=== PATIENT | male | born 1975 | race Caucasian/White ===

== ENCOUNTER 2022-02-28 14:14 | Inpatient (IN) ==
[2022-02-28] MEDS ORDERED: Piperacillin/Tazobactam 3.375 GM in 0.9 % Sodium Chloride Mini Bag 100 ML IVPB ONE (14:39)
[2022-02-28] MEDS ORDERED: Doxycycline 100 MG in 0.9 % Sodium Chloride Mini Bag 100 ML IVPB ONE (14:39)
[2022-02-28] MEDS ORDERED: 0.9 % Sodium Chloride 500 ML IVC ONE ×2 (14:41→15:58)
[2022-02-28 15:23] LABS: Basophils % 0.2 %; Immature Granulocytes % 0.5 % (0-4); Lymphocytes % 2.8 %; Red Cell Distribution Width 13.9 % (11.5-14.5)
[2022-02-28 15:24] LABS: Basophils # 0.1 K/mcL (0.0-0.2); Hematocrit 46.7 % (37.5-50.1); Hemoglobin 15.4 g/dL (12.9-16.9); Lymphocytes # 0.8 K/mcL (0.6-4.6); Mean Corpuscular Hemoglobin 28.2 pg (28.0-33.3); Mean Corpuscular Volume 85.4 fL (83.0-100.0); Mean Platelet Volume 10.4 fL (9.4-12.4); Monocytes # 1.2 K/mcL (0.0-1.3); Monocytes % 4.2 %; Platelet Count 256 K/mcL (140-400); Red Blood Count 5.47 M/mcL (4.19-5.50); Segmented Neutrophils % 92.3 %; White Blood Count 27.9 K/mcL (4.3-11.1)
[2022-02-28 15:25] LABS: VBG HCO3 22 mEq/L (21-27); VBG PCO2 37 mmHg (41-51); VBG PH 7.38 pH Units (7.32-7.42); VBG PO2 45 mmHg (25-50)
[2022-02-28 15:30] LABS: INR 1.2; Prothrombin Time 13.5 Seconds (9.4-12.1)
[2022-02-28 15:31] LABS: Neutrophils # 25.8 K/mcL (1.6-8.9)
[2022-02-28 15:54] LABS: BUN/Creatinine Ratio 19 (6-26); Blood Urea Nitrogen 10 mg/dL (6-20); Calcium 9.8 mg/dL (8.6-10.3); Carbon Dioxide 19 mEq/L (23-29); Chloride 106 mEq/L (98-107); Glucose 107 mg/dL (70-105); Osmolality,Calculated 282 (280-300); Sodium 136 mEq/L (136-145); Troponin I < 0.03 ng/mL (< 0.04)
[2022-02-28 15:58] LABS: Platelet Estimate Normal (Normal)
[2022-02-28] MEDS ORDERED: Iopamidol - 370 500 ML MLS IVP ONE ×2 (16:08→16:10)
[2022-02-28 16:09] LABS: Amorphous Sediment,Urine Few per hpf (None-Few); Bacteria,Urine Few per hpf (None-Few); Bilirubin,Urine Negative (Negative); Blood,Urine Large (Negative); Clarity,Urine Ex.Turbid (Clear); Color,Urine Yellow (Yellow); Glucose,Urine (UA) Normal (Normal); Ketones,Urine Negative (Negative); Leukocyte Esterase,Urine Large (Negative); Mucus,Urine Few per lpf (None-Few); Nitrite,Urine Positive (Negative); Protein,Urine 50 mg/dL (Neg-Trace); RBC,Urine TNTC per hpf (0-3); Specific Gravity,Urine 1.018 (1.010-1.025); Urobilinogen,Urine Normal (Normal); WBC,Urine TNTC per hpf (0-3)
[2022-02-28 16:39] LABS: Adenovirus Not Detected (Not Detect); Coronavirus 229E Not Detected (Not Detect); Coronavirus HKU1 Not Detected (Not Detect); Coronavirus NL63 Not Detected (Not Detect); Coronavirus OC43 Not Detected (Not Detect); Human Metapneumovirus Not Detected (Not Detect); Human Rhinovirus/Enterovirus Not Detected (Not Detect); Influenza A Subtype 2009 H1 Not Detected (Not Detect); Influenza B Not Detected (Not Detect); SARS-CoV-2 Not Detected (Not Detect)
[2022-02-28 16:40] LABS: Bordetella Pertussis Not Detected (Not Detect); Chlamydophila pneumoniae Not Detected (Not Detect); Mycoplasma pneumoniae Not Detected (Not Detect); Parainfluenza Virus 1 Not Detected (Not Detect); Parainfluenza Virus 2 Not Detected (Not Detect); Parainfluenza Virus 3 Not Detected (Not Detect); Parainfluenza Virus 4 Not Detected (Not Detect); Respiratory Syncytial Virus Not Detected (Not Detect)
[2022-02-28 17:07] LABS: Alanine Aminotransferase 18 Units/L (7-52); Albumin 4.7 g/dL (3.5-5.7); Albumin/Globulin Ratio 1.6 (1.1-2.2); Alkaline Phosphatase 62 Units/L (34-104); Aspartate Amino Transferase 17 Units/L (13-39); Bilirubin,Direct 0.1 mg/dL (0.0-0.2); Bilirubin,Indirect 0.6 mg/dL (0.0-1.0); Bilirubin,Total 0.7 mg/dL (0.3-1.0); Total Protein 7.7 g/dL (6.4-8.9)
[2022-02-28] MEDS ORDERED: Ipratropium/Albuterol Neb 3 ML ONE (17:57)
[2022-02-28] MEDS ORDERED: Ipratropium/Albuterol Neb 3 ML IH ONE (18:04)
[2022-02-28] MEDS ORDERED: Ondansetron 4 MG/2 ML VIAL IVP PRN (19:32)
[2022-02-28] MEDS ORDERED: Naloxone 0.4 MG/ML INJ IVP PRN (19:32)
[2022-02-28] MEDS ORDERED: Acetaminophen 325 MG TABLET PO PRN (19:32)
[2022-02-28] MEDS ORDERED: Ketorolac 30 MG/ML VIAL IVP PRN (19:32)
[2022-02-28 19:51] LABS: Amphetamine Screen,Urine Negative ng/mL (Cutoff=1000); Barbiturate Screen,Urine Negative ng/mL (Cutoff=200); Benzodiazepines Screen,Urine Negative ng/mL (Cutoff=200); Cannabinoid Screen,Urine Positive ng/mL (Cutoff = 50); Cocaine Screen,Urine Negative ng/mL (Cutoff= 300); Opiate Screen,Urine Negative ng/mL (Cutoff=300); Phencyclidine Screen,Urine Negative ng/mL (Cutoff=25)
[2022-02-28] MEDS ORDERED: Levalbuterol Neb 0.63 MG/3 ML IH PRN (20:42)
[2022-02-28] MEDS: 0.9 % Sodium Chloride 1,000 ML IVC SCH (23:28)
[2022-03-01] MEDS ORDERED: tiZANidine 4 MG TABLET PO ONE ×2 (00:30→18:05)
[2022-03-01] MEDS ORDERED: Norepinephrine 4 MG/254 ML IV.SOLN IVC ONE (02:23)
[2022-03-01] MEDS ORDERED: 0.9 % Sodium Chloride 1,000 ML ONE (02:59)
[2022-03-01] MEDS ORDERED: 0.9 % Sodium Chloride 1,000 ML IV ONE (03:00)
[2022-03-01] MEDS ORDERED: Norepinephrine 4 MG/254 ML IV.SOLN IVC SCH (04:45)
[2022-03-01] MEDS: 0.9 % Sodium Chloride 1,000 ML IVC SCH ×5 (06:08→21:05)
[2022-03-01] MEDS ORDERED: Azithromycin 500 MG in 0.9 % Sodium Chloride 250 ML IVPB SCH (09:00)
[2022-03-01 09:04] LABS: Hematocrit 37.1 % (37.5-50.1); Mean Corpuscular HGB Conc 33.7 g/dL (31.6-35.5); Mean Corpuscular Hemoglobin 28.7 pg (28.0-33.3); Mean Corpuscular Volume 85.3 fL (83.0-100.0); Mean Platelet Volume 10.5 fL (9.4-12.4); Platelet Count 225 K/mcL (140-400); Red Blood Count 4.35 M/mcL (4.19-5.50); Red Cell Distribution Width 14.1 % (11.5-14.5); White Blood Count 21.7 K/mcL (4.3-11.1)
[2022-03-01 09:24] LABS: BUN/Creatinine Ratio 21 (6-26); Blood Urea Nitrogen 8 mg/dL (6-20); Calcium 8.2 mg/dL (8.6-10.3); Carbon Dioxide 19 mEq/L (23-29); Chloride 110 mEq/L (98-107); Glucose 110 mg/dL (70-105); Osmolality,Calculated 281 (280-300); Potassium 3.3 mEq/L (3.5-5.1); Sodium 136 mEq/L (136-145)
[2022-03-01] MEDS ORDERED: *HR* Heparin 5,000 UNIT/ML VIAL SQ SCH (09:30)
[2022-03-01 09:34] LABS: Hemoglobin 12.5 g/dL (12.9-16.9)
[2022-03-01] MEDS: Doxycycline 100 MG in 0.9 % Sodium Chloride Mini Bag 100 ML IVPB SCH ×2 (18:03→18:38)
[2022-03-01] MEDS: *HR* Heparin 5,000 UNIT/ML VIAL SQ SCH (18:38)
[2022-03-02] MEDS: 0.9 % Sodium Chloride 1,000 ML IVC SCH ×3 (04:23→20:49)
[2022-03-02] MEDS: Doxycycline 100 MG in 0.9 % Sodium Chloride Mini Bag 100 ML IVPB SCH ×2 (06:08→17:44)
[2022-03-02] MEDS: *HR* Heparin 5,000 UNIT/ML VIAL SQ SCH ×2 (06:10→18:59)
[2022-03-02] MEDS: cefTRIAXone 1,000 MG in 0.9 % Sodium Chloride 20 ML IVP SCH ×2 (08:31→10:58)
[2022-03-02] MEDS ORDERED: Potassium Chloride Elixir 20 MEQ/15 ML UDC PO ONE (09:15)
[2022-03-02] MEDS ORDERED: polyethylene glycoL 3350 17 GM POWD.PACK GTUBE PRN (10:56)
[2022-03-02] MEDS ORDERED: Bisacodyl 10 MG RECTAL SUPPOSITORY RC PRN (10:56)
[2022-03-02] MEDS ORDERED: Ipratropium/Albuterol Neb 3 ML IH PRN (10:56)
[2022-03-02] MEDS ORDERED: GuaiFENesin Liq 200 MG/10 ML UDC GTUBE PRN (10:56)
[2022-03-02] MEDS ORDERED: Fluticasone Propionate Nasal 50 MCG/SPRAY BOTTLE NS PRN (10:56)
[2022-03-02] MEDS ORDERED: Artificial Tears SOLN 15 ML BOTTLE BOTH EYES PRN (11:14)
[2022-03-02] MEDS ORDERED: Loratadine 10 MG TABLET GTUBE PRN (11:16)
[2022-03-02] MEDS ORDERED: TIZANIDINE HCL 2 MG GTUBE PRN (11:20)
[2022-03-02] MEDS ORDERED: SENNA LEAF EXTRACT GTUBE PRN (11:22)
[2022-03-02] MEDS ORDERED: PEG OP PRN (11:23)
[2022-03-02] MEDS ORDERED: PROPYLENE GLYCOL OP PRN (11:23)
[2022-03-02] MEDS: Glycopyrrolate 1 MG TABLET GTUBE SCH (11:57)
[2022-03-02 13:47] LABS: Basophils % 0.3 %; Eosinophils % 0.2 %; Hematocrit 41.6 % (37.5-50.1); Hemoglobin 13.7 g/dL (12.9-16.9); Immature Granulocytes % 0.3 % (0-4); Lymphocytes # 2.1 K/mcL (0.6-4.6); Lymphocytes % 13.7 %; Mean Corpuscular HGB Conc 32.9 g/dL (31.6-35.5); Mean Corpuscular Hemoglobin 28.3 pg (28.0-33.3); Mean Platelet Volume 10.3 fL (9.4-12.4); Monocytes # 1.2 K/mcL (0.0-1.3); Monocytes % 7.9 %; Neutrophils # 11.6 K/mcL (1.6-8.9); Platelet Count 208 K/mcL (140-400); Red Blood Count 4.84 M/mcL (4.19-5.50); Red Cell Distribution Width 14.3 % (11.5-14.5); Segmented Neutrophils % 77.6 %
[2022-03-02 14:22] LABS: BUN/Creatinine Ratio 20 (6-26); Blood Urea Nitrogen 6 mg/dL (6-20); Calcium 8.6 mg/dL (8.6-10.3); Carbon Dioxide 20 mEq/L (23-29); Chloride 112 mEq/L (98-107); Glucose 92 mg/dL (70-105); Osmolality,Calculated 291 (280-300); Potassium 3.6 mEq/L (3.5-5.1); Sodium 142 mEq/L (136-145)
[2022-03-02] MEDS ORDERED: BENZOCAINE RC ONE (18:45)
[2022-03-02] MEDS ORDERED: DOCUSATE SODIUM RC ONE (18:45)
[2022-03-02] MEDS: tiZANidine 4 MG TABLET GTUBE SCH (22:36)
[2022-03-02] MEDS: Acyclovir 200 MG CAPSULE GTUBE SCH (22:37)
[2022-03-03] MEDS ORDERED: tiZANidine 4 MG TABLET GTUBE PRN ×2 (04:14→04:15)
[2022-03-03] MEDS: *HR* Heparin 5,000 UNIT/ML VIAL SQ SCH ×2 (06:40→18:54)
[2022-03-03] MEDS: Vitamin B Complex/Vit C/Vit E 1 EACH TABLET GTUBE SCH (08:59)
[2022-03-03] MEDS: Cholecalciferol (D-3) 1,000 UNIT (25MCG) TABLET GTUBE SCH (09:00)
[2022-03-03] MEDS: Acyclovir 200 MG CAPSULE GTUBE SCH ×2 (09:00→20:57)
[2022-03-03] MEDS: Ascorbic Acid 500 MG TABLET GTUBE SCH (09:00)
[2022-03-03] MEDS: *HR* Acetylcysteine 20% 600 MG/3 ML ORAL SYRINGE GTUBE SCH (09:01)
[2022-03-03] MEDS: cefTRIAXone 1,000 MG in 0.9 % Sodium Chloride 20 ML IVP SCH (09:01)
[2022-03-03] MEDS: Doxycycline 100 MG in 0.9 % Sodium Chloride Mini Bag 100 ML IVPB SCH ×2 (09:07→18:54)
[2022-03-03] MEDS: Glycopyrrolate 1 MG TABLET GTUBE SCH (09:07)
[2022-03-03] MEDS: DOCUSATE SODIUM RC SCH (09:08)
[2022-03-03] MEDS: BENZOCAINE RC SCH (09:08)
[2022-03-03] MEDS: 0.9 % Sodium Chloride 1,000 ML IVC SCH ×2 (14:00→14:01)
[2022-03-03 16:52] LABS: Hematocrit 36.8 % (37.5-50.1); Hemoglobin 12.5 g/dL (12.9-16.9); Immature Granulocytes % 0.3 % (0-4); Lymphocytes % 22.7 %; Mean Corpuscular Hemoglobin 28.5 pg (28.0-33.3); Mean Corpuscular Volume 83.8 fL (83.0-100.0); Mean Platelet Volume 10.7 fL (9.4-12.4); Platelet Count 242 K/mcL (140-400); Red Blood Count 4.39 M/mcL (4.19-5.50); Red Cell Distribution Width 13.7 % (11.5-14.5); Segmented Neutrophils % 67.3 %; White Blood Count 10.1 K/mcL (4.3-11.1)
[2022-03-03 16:53] LABS: Basophils # 0.1 K/mcL (0.0-0.2); Basophils % 0.6 %; Eosinophils # 0.2 K/mcL (0.0-0.6); Eosinophils % 1.8 %; Lymphocytes # 2.3 K/mcL (0.6-4.6); Monocytes # 0.7 K/mcL (0.0-1.3); Monocytes % 7.3 %; Neutrophils # 6.8 K/mcL (1.6-8.9)
[2022-03-03 17:03] LABS: BUN/Creatinine Ratio 14 (6-26); Blood Urea Nitrogen 5 mg/dL (6-20); Calcium 9.1 mg/dL (8.6-10.3); Carbon Dioxide 22 mEq/L (23-29); Chloride 109 mEq/L (98-107); Glucose 93 mg/dL (70-105); Magnesium 1.8 mg/dL (1.6-2.6); Osmolality,Calculated 287 (280-300); Potassium 3.5 mEq/L (3.5-5.1); Sodium 140 mEq/L (136-145)
[2022-03-03] MEDS: Simethicone 40 MG/0.6 ML MLS GTUBE PRN (18:00)
[2022-03-03] MEDS: tiZANidine 4 MG TABLET GTUBE SCH (21:52)
[2022-03-03] MEDS: Magic Mouthwash 10 ML UD Cup PO SCH (23:37)
[2022-03-04] MEDS: *HR* Heparin 5,000 UNIT/ML VIAL SQ SCH ×2 (06:01→17:09)
[2022-03-04] MEDS: Doxycycline 100 MG in 0.9 % Sodium Chloride Mini Bag 100 ML IVPB SCH ×2 (06:01→17:07)
[2022-03-04] MEDS: Simethicone 40 MG/0.6 ML MLS GTUBE PRN (06:20)
[2022-03-04] MEDS: tiZANidine 4 MG TABLET GTUBE PRN (06:45)
[2022-03-04] MEDS: Magic Mouthwash 10 ML UD Cup PO SCH ×3 (08:32→17:08)
[2022-03-04] MEDS: *HR* Acetylcysteine 20% 600 MG/3 ML ORAL SYRINGE GTUBE SCH (08:32)
[2022-03-04] MEDS: cefTRIAXone 1,000 MG in 0.9 % Sodium Chloride 20 ML IVP SCH (08:33)
[2022-03-04] MEDS: BENZOCAINE RC SCH (08:33)
[2022-03-04] MEDS: DOCUSATE SODIUM RC SCH (08:33)
[2022-03-04] MEDS: Glycopyrrolate 1 MG TABLET GTUBE SCH (08:33)
[2022-03-04] MEDS: Vitamin B Complex/Vit C/Vit E 1 EACH TABLET GTUBE SCH (08:34)
[2022-03-04] MEDS: Acyclovir 200 MG CAPSULE GTUBE SCH ×2 (08:34→21:56)
[2022-03-04] MEDS: Ascorbic Acid 500 MG TABLET GTUBE SCH (08:34)
[2022-03-04] MEDS: Cholecalciferol (D-3) 1,000 UNIT (25MCG) TABLET GTUBE SCH (08:35)
[2022-03-04] MEDS: tiZANidine 4 MG TABLET GTUBE SCH (21:56)
[2022-03-05] MEDS: *HR* Heparin 5,000 UNIT/ML VIAL SQ SCH ×2 (04:09→17:59)
[2022-03-05 05:28] LABS: Hematocrit 36.9 % (37.5-50.1); Hemoglobin 12.4 g/dL (12.9-16.9); Mean Corpuscular HGB Conc 33.6 g/dL (31.6-35.5); Mean Corpuscular Volume 83.3 fL (83.0-100.0); Mean Platelet Volume 10.2 fL (9.4-12.4); Platelet Count 233 K/mcL (140-400); Red Blood Count 4.43 M/mcL (4.19-5.50); Red Cell Distribution Width 13.5 % (11.5-14.5)
[2022-03-05 05:49] LABS: BUN/Creatinine Ratio 23 (6-26); Blood Urea Nitrogen 6 mg/dL (6-20); Calcium 8.9 mg/dL (8.6-10.3); Carbon Dioxide 22 mEq/L (23-29); Chloride 106 mEq/L (98-107); Glucose 81 mg/dL (70-105); Magnesium 1.8 mg/dL (1.6-2.6); Osmolality,Calculated 283 (280-300); Potassium 3.1 mEq/L (3.5-5.1); Sodium 138 mEq/L (136-145)
[2022-03-05] MEDS: *HR* Acetylcysteine 20% 600 MG/3 ML ORAL SYRINGE GTUBE SCH (07:46)
[2022-03-05] MEDS: cefTRIAXone 1,000 MG in 0.9 % Sodium Chloride 20 ML IVP SCH (07:47)
[2022-03-05] MEDS: Magic Mouthwash 10 ML UD Cup PO SCH ×3 (07:47→17:59)
[2022-03-05] MEDS: Doxycycline 100 MG in 0.9 % Sodium Chloride Mini Bag 100 ML IVPB SCH ×2 (07:48→17:59)
[2022-03-05] MEDS: Vitamin B Complex/Vit C/Vit E 1 EACH TABLET GTUBE SCH (07:49)
[2022-03-05] MEDS: Cholecalciferol (D-3) 1,000 UNIT (25MCG) TABLET GTUBE SCH (07:49)
[2022-03-05] MEDS: Glycopyrrolate 1 MG TABLET GTUBE SCH ×2 (07:49→12:05)
[2022-03-05] MEDS: Acyclovir 200 MG CAPSULE GTUBE SCH ×2 (07:49→21:59)
[2022-03-05] MEDS: Ascorbic Acid 500 MG TABLET GTUBE SCH (07:49)
[2022-03-05] MEDS ORDERED: Potassium Effervescent 25 MEQ TABLET.EFF GTUBE ONE (07:53)
[2022-03-05] MEDS: DOCUSATE SODIUM RC SCH (08:05)
[2022-03-05] MEDS: BENZOCAINE RC SCH (08:05)
[2022-03-05] MEDS: tiZANidine 4 MG TABLET GTUBE SCH (21:59)
[2022-03-06 03:23] VITALS: TEMP 97.8
[2022-03-06] MEDS: *HR* Heparin 5,000 UNIT/ML VIAL SQ SCH (05:31)
[2022-03-06] MEDS: Doxycycline 100 MG in 0.9 % Sodium Chloride Mini Bag 100 ML IVPB SCH (05:45)
[2022-03-06] MEDS: tiZANidine 4 MG TABLET GTUBE PRN ×2 (05:54→08:10)
[2022-03-06] MEDS: Simethicone 40 MG/0.6 ML MLS GTUBE PRN (06:04)
[2022-03-06 08:00] VITALS: BP 120/79
[2022-03-06] MEDS: Acyclovir 200 MG CAPSULE GTUBE SCH (08:11)
[2022-03-06] MEDS: Vitamin B Complex/Vit C/Vit E 1 EACH TABLET GTUBE SCH (08:11)
[2022-03-06] MEDS: Cholecalciferol (D-3) 1,000 UNIT (25MCG) TABLET GTUBE SCH (08:11)
[2022-03-06] MEDS: Ascorbic Acid 500 MG TABLET GTUBE SCH (08:11)
[2022-03-06] MEDS: *HR* Acetylcysteine 20% 600 MG/3 ML ORAL SYRINGE GTUBE SCH (08:12)
[2022-03-06] MEDS: DOCUSATE SODIUM RC SCH (08:12)
[2022-03-06] MEDS: BENZOCAINE RC SCH (08:12)
[2022-03-06] MEDS: Magic Mouthwash 10 ML UD Cup PO SCH ×2 (08:12→12:27)
[2022-03-06] MEDS: cefTRIAXone 1,000 MG in 0.9 % Sodium Chloride 20 ML IVP SCH (08:12)
[2022-03-06] MEDS: Glycopyrrolate 1 MG TABLET GTUBE SCH (08:17)
[2022-03-06 08:40] LABS: BUN/Creatinine Ratio 25 (6-26); Blood Urea Nitrogen 7 mg/dL (6-20); Carbon Dioxide 23 mEq/L (23-29); Chloride 103 mEq/L (98-107); Glucose 93 mg/dL (70-105); Magnesium 1.8 mg/dL (1.6-2.6); Osmolality,Calculated 282 (280-300); Potassium 3.4 mEq/L (3.5-5.1); Sodium 137 mEq/L (136-145)
[2022-03-06 14:44] VITALS: O2SAT 99
[2022-03-06 14:48] VITALS: PULSE 74
[2022-03-06 16:28] LABS: Adenovirus Not Detected (Not Detect); Bordetella Pertussis Not Detected (Not Detect); Chlamydophila pneumoniae Not Detected (Not Detect); Coronavirus 229E Not Detected (Not Detect); Coronavirus HKU1 Not Detected (Not Detect); Coronavirus NL63 Not Detected (Not Detect); Coronavirus OC43 Not Detected (Not Detect); Human Metapneumovirus Not Detected (Not Detect); Human Rhinovirus/Enterovirus Not Detected (Not Detect); Influenza A Subtype 2009 H1 Not Detected (Not Detect); Influenza B Not Detected (Not Detect); Mycoplasma pneumoniae Not Detected (Not Detect); Parainfluenza Virus 1 Not Detected (Not Detect); Parainfluenza Virus 2 Not Detected (Not Detect); Parainfluenza Virus 3 Not Detected (Not Detect); Parainfluenza Virus 4 Not Detected (Not Detect); Respiratory Syncytial Virus Not Detected (Not Detect); SARS-CoV-2 Not Detected (Not Detect)
[2022-03-06] MEDS ORDERED: Cefdinir 300 MG CAPSULE PO SCH (21:00)
[2022-03-06] MEDS ORDERED: Doxycycline 100 MG CAPSULE PO SCH (21:00)
== END 2022-03-06 17:57 | disposition home or self-care (01) | DRG 698 ==
LOC: 2NNU 14:14 → EMEROOARM 14:14 → 2NNU 22:02 → SUATTDRO 03-01 17:05
PROVIDERS: ADMIT Internal Medicine; ATTEND Hospitalist